=== PATIENT | female | born 1940 | race Caucasian/White ===

== ENCOUNTER → 2019-05-16 13:42 | Outpatient (CLI) | payer MEDICARE, SELFPAY ==
--- NOTE | ~2019-05-16 | XR_ITS ---
EXAMINATION: XR chest 2V EXAM DATE: 05/16/2019 14:15 INDICATION: Shortness of breath. TECHNIQUE: Frontal and lateral projections of the chest obtained and reviewed. Comparison is made to prior examination from 07/11/2012. FINDINGS: The lungs are clear. There are no pleural effusions. The cardiomediastinal silhouette is within normal limits. There is no pneumothorax suspected. The bones and soft tissues are unremarkab le. IMPRESSION: No acute cardiopulmonary findings. Reviewed, dictated and finalized at location A.
== END ==
PROVIDERS: PCP Internal Medicine; Visit Provider Nurse Practitioner
DX: R06.02 Shortness of breath (principal)
CPT/HCPCS: 71046

== ENCOUNTER 2019-09-25 09:25 | Outpatient (CLI) | payer MEDICARE, SELFPAY ==
--- NOTE | ~2019-09-25 | MM_ITS ---
EXAMINATION: MM screening [place] BI w kori HISTORY: Screening mammogram TECHNIQUE: Craniocaudal and mediolateral oblique 3-D tomosynthesis images were obtained and synthetic 2-D images were generated. CAD analysis was submitted and interpreted. COMPARISON: 05/10/2018, 04/14/2017, 04/11/2016 bilateral digital screening mammogram examinations BREAST PARENCHYMAL COMPOSITION: There are scattered areas of fibroglandular density. FINDINGS: There is no evidence of suspicious mass, calcification, or architectural distortion to sugg est malignancy in either breast. There has been no suspicious interval change. IMPRESSION: 1. No mammographic evidence of malignancy. 2. Recommend routine screening mammography in one year. BI-RADS Category 1: Negative Reviewed, dictated and finalized at location A.
== END 2019-09-25 09:26 | disposition home or self-care (01) ==
LOC: ANHIMG 09:27
PROVIDERS: PCP Internal Medicine; Visit Provider Obstetrics & Gynecology
DX: Z12.31 Encounter for screening mammogram for malignant neoplasm of breast (principal)
CPT/HCPCS: 77063; 77067

== ENCOUNTER 2019-10-08 09:15 | Outpatient (RCR) | payer MEDICARE, SELFPAY ==
[2019-09-24 08:03] VITALS: BMI 25.5
[2019-09-24 08:05] VITALS: BMI 25.5
== END 2019-12-10 10:25 | disposition home or self-care (01) ==
LOC: ANHDMC 09:15
PROVIDERS: PCP Internal Medicine; Visit Provider Internal Medicine
DX: E11.9 Type 2 diabetes mellitus without complications (principal); Z71.3 Dietary counseling and surveillance; Z71.89 Other specified counseling
CPT/HCPCS: 97802; G0108

== ENCOUNTER 2019-12-30 08:18 | Outpatient (CLI) | payer MEDICARE, SELFPAY ==
--- NOTE | ~2019-12-30 | CT_ITS ---
EXAMINATION: CT abdomen wo con DATE: 12/30/2019 09:00 INDICATION: Splenic artery aneurysm TECHNIQUE: Computed tomography (CT) of the abdomen was performed without intravenous contrast. The do se-length product (DLP) was 230.79 mGy-cm. Automated exposure control and iterative reconstruction te chnique were employed. COMPARISON: 01/11/2019 FINDINGS: The lung bases are clear. The heart size is normal. 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 The liver, spleen, pancreas, and adrenal g lands are normal. The gallbladder is surgically absent. Nonobstructing stones of the left kidney uppe r pole measure up to 6 mm. There is a 1.3 cm cyst of the right kidney. No pathologically enlarged abd ominal lymph nodes are identified. There are no dilated loops of bowel. Severe lower lumbar spondylos is is noted. There is a fat-containing umbilical hernia. IMPRESSION: 1. 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 Reviewed, dictated and finalized at location A. MONITOR
== END 2019-12-30 08:19 | disposition home or self-care (01) ==
PROVIDERS: PCP Internal Medicine; Visit Provider Nurse Practitioner
DX: I72.8 Aneurysm of other specified arteries (principal)
CPT/HCPCS: 74150